=== PATIENT | male | born 1980 | race Caucasian/White ===

== ENCOUNTER → 2018-05-21 10:24 | Outpatient (CLI) | payer OTHER, SELFPAY ==
[2018-05-21 11:41] LABS: Liquefaction Semen YES (YES); PH Semen 7.5 (7-8); Sperm Count 91 x10^6/mL (20-150); Sperm Motility 85% % Motile; Volume Semen 2.25 (1.0-5.0)
[2018-05-21 12:24] LABS: Sperm Morphology 45 %ABNORM (0-30)
== END ==
PROVIDERS: Visit Provider Obstetrics & Gynecology
DX: N46.8 Other male infertility (principal)
CPT/HCPCS: 89320